=== PATIENT | male | born 1975 | race Asian ===

== ENCOUNTER 2021-02-01 08:25 | Outpatient (REF) | payer BC, SELFPAY ==
--- NOTE | ~2021-02-01 | CT_ITS ---
EXAMINATION: CT HEAD WITHOUT CONTRAST CLINICAL INFORMATION: Headache. COMPARISON: None. TECHNIQUE: Contiguous axial imaging was performed from the skull base to vertex without intravenous administration of contrast. This CT examination was performed using dose optimization techniques as appropriate, variously including the following: *Automated exposure control *Adjustment of mA and/or kV according to patient size (this includes techniques or standardized protocols for targeted exams where dose is matched to indication/reason for exam; i.e. extremities or head) *Use of iterative reconstruction technique DLP: 749 mGy-cm. FINDINGS: There is no evidence of acute intracranial hemorrhage or territorial infarction. No abnormal mass effect or midline shift is seen. Joseph to white matter differentiation is well preserved. No extra-axial fluid collections are identified. The ventricles are normal in size. There is no abnormal attenuation within the brain parenchyma. The osseous structures and soft tissues are normal. There is mild mucoperiosteal thickening bilateral ethmoid, frontal and right sphenoid sinuses. The mastoid sinuses are well aerated and clear. CT/CT head/brain wo con IMPRESSION: No acute intracranial process seen. Bilateral chronic ethmoid, frontal and right sphenoid sinus inflammatory changes.
== END 2021-02-01 08:26 | disposition home or self-care (01) ==
LOC: HO.CT 08:25
PROVIDERS: Visit Provider Family Medicine
DX: R51.9 Headache, unspecified (principal)
CPT/HCPCS: 70450